=== PATIENT | male | born 1965 | race Caucasian/White ===

== ENCOUNTER 2018-03-30 17:05 | Inpatient (IN) | payer MEDICAID, OTHER ==
[2018-03-30 19:00] LABS: ADD MAN DIFF? NO
[2018-03-30 19:02] LABS: WHITE BLOOD COUNT 9.1 10^3/ul (4.8-10.8)
[2018-03-30 19:02] LABS: BASOPHIL # 0.1 10^3/ul (0.0-0.1); BASOPHILS % 0.5 % (0.0-2.0); EOSINOPHILS # 0.3 10^3/ul (0.0-0.5); EOSINOPHILS % 2.7 % (0.0-7.0); HEMATOCRIT 31.4 % (42.0-52.0); HEMOGLOBIN 10.4 g/dl (14.0-18.0); LYMPHOCYTES % 11.4 % (15.0-51.0); MEAN CORPUSCULAR HEMOGLOBIN 31.3 pg (29.0-33.0); MEAN CORPUSCULAR HGB CONC 33.1 g/dl (32.0-37.0); MEAN CORPUSCULAR VOLUME 94.6 fl (82.0-101.0); MEAN PLATELET VOLUME 12.6 fl (7.4-10.4); MONOCYTE # 0.6 10^3/ul (0.3-0.9); NEUTROPHIL # 7.1 10^3/ul (1.6-7.5); PLATELET COUNT 217 10^3/UL (140-415); RED BLOOD COUNT 3.32 10^6/ul (4.70-6.10); RED CELL DISTRIBUTION WIDTH 13.2 % (11.5-14.5)
[2018-03-30 19:20] LABS: ALANINE AMINOTRANSFERASE 21 IU/L (13-69); ALBUMIN 3.5 g/dl (3.3-4.9); ALKALINE PHOSPHATASE 158 IU/L (42-121); ANION GAP 13 (5-13); ASPARTATE AMINO TRANSFERASE 17 IU/L (15-46); BILIRUBIN,INDIRECT 0.2 mg/dl (0-1.1); BILIRUBIN,TOTAL 0.2 mg/dl (0.2-1.3); BLOOD UREA NITROGEN 72 mg/dl (7-20); CALCIUM 8.1 mg/dl (8.4-10.2); CARBON DIOXIDE 18 mmol/L (21-31); CHLORIDE 109 mmol/L (97-110); CREATININE 7.72 mg/dl (0.61-1.24); Estimated GFR 7 mL/min (>60); GLUCOSE 123 mg/dl (70-220); POTASSIUM 5.2 mmol/L (3.5-5.1); SODIUM 140 mmol/L (135-144)
[2018-03-30 19:21] LABS: PROTIME 14.4 Sec (11.9-14.9); PT RATIO 1.1
[2018-03-30 19:22] LABS: PARTIAL THROMBOPLASTIN TIME 36.5 Sec (23.0-35.0)
[2018-03-30 19:31] LABS: TROPONIN-I 0.068 ng/ml (0.000-0.120)
[2018-03-30 19:57] LABS: B-TYPE NATRIURETIC PEPTIDE 58500 PG/ML (0-125)
[2018-03-30 21:27] LABS: ADD UMIC YES; UR ASCORBIC ACID NEGATIVE (NEGATIVE); UR BACTERIA FEW /HPF (NONE SEEN); UR BILIRUBIN (Dip) NEGATIVE (NEGATIVE); UR BLOOD (Dip) NEGATIVE (NEGATIVE); UR CLARITY CLEAR (CLEAR); UR COLOR STRAW (YELLOW); UR GLUCOSE (Dip) 2+ mg/dL (NEGATIVE); UR KETONES (Dip) NEGATIVE (NEGATIVE); UR LEUKOCYTE ESTERASE (Dip) NEGATIVE Leu/ul (NEGATIVE); UR NITRITE (Dip) NEGATIVE (NEGATIVE); UR RBC 5 /HPF (0-5); UR SPECIFIC GRAVITY (Dip) 1.013 (1.003-1.030); UR TOTAL PROTEIN (Dip) 2+ mg/dl (NEGATIVE); UR UROBILINOGEN (Dip) NEGATIVE (NEGATIVE); UR WBC 9 /HPF (0-5)
[2018-03-30] MEDS: FUROSEMIDE 40 MG INJ IV (22:22)
[2018-03-30 22:52] LABS: AADO2 Arterial 147.2 mmHg (7.0-24.0); Arterial Base Excess -8.5 mmol/L (-3.0-3); Arterial Blood Gas Oxygen Sat 84.1 mmHG (95.0-98.0); Arterial COHb 1.5 % (0.0-3.0); Arterial Fraction of Oxyhgb 82.7 % (93.0-99.0); Arterial HCO3 16.5 mmol/L (22.0-26.0); Arterial MetHb 0.2 % (0.0-1.5); Arterial Total Hemglobin 11.6 g/dl (12.0-18.0); Arterial pCO2 32.4 mmhg (35-45); MODE NASAL CANNULA; Site Right Brachial
[2018-03-30] MEDS ORDERED: ONDANSETRON 4 MG INJ IV (23:30)
[2018-03-30] MEDS ORDERED: ALBUTEROL/IPRATROPIUM (NEB) 3 ML AMP NEB (23:30)
[2018-03-30] MEDS ORDERED: ACETAMINOPHEN 325 MG TAB PO (23:30)
[2018-03-30] MEDS ORDERED: NITROGLYCERIN (SL) 0.4 MG TAB SL (23:30)
[2018-03-30] MEDS ORDERED: GLUCOSE GEL 15 GRAM TUBE BUCCAL (23:45)
[2018-03-30] MEDS ORDERED: GLUCOSE GEL 15 GRAM TUBE PO ×2 (23:45)
[2018-03-30] MEDS ORDERED: GLUCAGON 1 MG INJ IM (23:45)
[2018-03-30] MEDS ORDERED: DEXTROSE 50% 50 ML SYRINGE IV ×2 (23:45)
[2018-03-31] MEDS: LABETALOL HCL 20MG INJ IV ×4 (01:14→15:42)
[2018-03-31] MEDS: INSULIN ASPART [NOVOLOG] 3 ML PEN SC ×6 (01:15→21:23)
[2018-03-31] MEDS: ACCU-CHEK XX (01:18)
[2018-03-31 02:40] LABS: ADD MAN DIFF? NO
[2018-03-31 02:42] LABS: ABNORMAL IP MESSAGE 1; BASOPHILS % 0.3 % (0.0-2.0); EOSINOPHILS # 0.1 10^3/ul (0.0-0.5); EOSINOPHILS % 0.7 % (0.0-7.0); HEMATOCRIT 32.3 % (42.0-52.0); HEMOGLOBIN 10.5 g/dl (14.0-18.0); LYMPHOCYTES # 0.5 10^3/ul (0.8-2.9); LYMPHOCYTES % 4.1 % (15.0-51.0); MEAN CORPUSCULAR HEMOGLOBIN 30.9 pg (29.0-33.0); MEAN CORPUSCULAR HGB CONC 32.5 g/dl (32.0-37.0); MEAN PLATELET VOLUME 12.3 fl (7.4-10.4); MONOCYTE # 0.6 10^3/ul (0.3-0.9); MONOCYTES % 4.4 % (0.0-11.0); NEUTROPHIL # 11.7 10^3/ul (1.6-7.5); PLATELET COUNT 236 10^3/UL (140-415); POSITIVE DIFF @See below; RED CELL DISTRIBUTION WIDTH 13.4 % (11.5-14.5)
[2018-03-31 03:10] LABS: HEMOGLOBIN A1C 6.2 % (0-5.9)
[2018-03-31 03:20] LABS: ALANINE AMINOTRANSFERASE 21 IU/L (13-69); ALBUMIN 3.4 g/dl (3.3-4.9); ALKALINE PHOSPHATASE 160 IU/L (42-121); ANION GAP 14 (5-13); ASPARTATE AMINO TRANSFERASE 15 IU/L (15-46); BILIRUBIN,INDIRECT 0.3 mg/dl (0-1.1); BILIRUBIN,TOTAL 0.3 mg/dl (0.2-1.3); BLOOD UREA NITROGEN 74 mg/dl (7-20); CARBON DIOXIDE 17 mmol/L (21-31); CHLORIDE 108 mmol/L (97-110); CREATININE 7.79 mg/dl (0.61-1.24); Estimated GFR 7 mL/min (>60); GLUCOSE 140 mg/dl (70-220); POTASSIUM 5.4 mmol/L (3.5-5.1); SODIUM 139 mmol/L (135-144); TOTAL PROTEIN 6.8 g/dl (6.1-8.1)
[2018-03-31] MEDS: CEFTRIAXONE 1 GM/50 ML (PMX) 50 ML IVPB (03:20)
[2018-03-31 06:01] LABS: POTASSIUM,URINE RANDOM 25.2 mmol/L (25-125)
[2018-03-31 06:01] LABS: SODIUM,URINE RANDOM 117 mmol/L (30-90)
[2018-03-31] MEDS: FAMOTIDINE 20 MG INJ IV (09:39)
[2018-03-31 12:27] LABS: HAAIG REFLEX REFLEX FILED
[2018-03-31] MEDS: BUMETANIDE 1 MG INJ IV (12:35)
[2018-03-31] MEDS: NA BICARBONATE 650 MG TAB PO ×2 (12:44→21:08)
[2018-03-31] MEDS: NA POLYST SULFON 15 GM/60 ML BTL PO ×2 (12:45→13:03)
[2018-03-31] MEDS: AMLODIPINE 5 MG TAB PO (15:42)
[2018-03-31] MEDS: BUMETANIDE 25 MG in DEXTROSE 5% 150 ML IV (18:06)
[2018-03-31 19:25] LABS: TROPONIN-I 0.139 ng/ml (0.000-0.120)
[2018-03-31] MEDS: ATORVASTATIN 80 MG TAB PO (21:08)
[2018-03-31 22:19] LABS: HEPATITIS B SURFACE ANTIGEN NEGATIVE (NEGATIVE)
[2018-03-31 22:36] LABS: HEPATITIS C VIRAL ANTIBODY NEGATIVE (NEGATIVE)
[2018-03-31 23:37] LABS: HEPATITIS B CORE ANTIBODY NEGATIVE (NEGATIVE)
[2018-04-01] MEDS: INSULIN ASPART [NOVOLOG] 3 ML PEN SC ×6 (01:23→21:15)
[2018-04-01 01:29] LABS: TROPONIN-I 0.119 ng/ml (0.000-0.120)
[2018-04-01] MEDS: ACCU-CHEK XX (01:52)
[2018-04-01 06:20] LABS: ANION GAP 12 (5-13); BLOOD UREA NITROGEN 78 mg/dl (7-20); CALCIUM 7.9 mg/dl (8.4-10.2); CARBON DIOXIDE 18 mmol/L (21-31); CHLORIDE 108 mmol/L (97-110); CHOL/HDL RATIO 3.3 RATIO; CREATININE 8.13 mg/dl (0.61-1.24); Estimated GFR 7 mL/min (>60); GLUCOSE 115 mg/dl (70-220); HDL CHOLESTEROL 32 mg/dl (28-71); LDL CHOLESTEROL,CALCULATED 58 mg/dl; MAGNESIUM 1.7 mg/dl (1.7-2.5); SODIUM 138 mmol/L (135-144); TRIGLYCERIDES 81 mg/dl (0-149)
[2018-04-01 06:20] LABS: CHOLESTEROL 106 mg/dl (100-200); PHOSPHORUS 7.6 mg/dl (2.5-4.9)
[2018-04-01 06:57] LABS: CREATININE,URINE RANDOM 26.84 mg/dl (20-370); PROTEIN/CREAT RATIO 5.96 RATIO
[2018-04-01 07:40] LABS: HIV 1&2 ANTIBODY NEGATIVE (NEGATIVE)
[2018-04-01] MEDS: FLU VACCINE 30 MCG/0.25 ML PF SYG (QS 2018 6-35 MOS) IM* (09:10)
[2018-04-01] MEDS: REGADENOSON 0.4 MG/5 ML SYG (09:37)
[2018-04-01] MEDS: NA BICARBONATE 650 MG TAB PO ×2 (10:49→20:48)
[2018-04-01] MEDS: FAMOTIDINE 20 MG TAB PO (10:50)
[2018-04-01] MEDS: AMLODIPINE 5 MG TAB PO (10:51)
[2018-04-01] MEDS: ASPIRIN 81 MG TAB PO (10:53)
[2018-04-01 15:01] LABS: ANA SCREEN NEGATIVE (NEGATIVE)
[2018-04-01 16:58] LABS: RAPID PLASMA REAGIN NONREACTIVE (NR)
[2018-04-01] MEDS: BUMETANIDE 25 MG in DEXTROSE 5% 150 ML IV (17:21)
[2018-04-01] MEDS: ATORVASTATIN 80 MG TAB PO (20:49)
[2018-04-02] MEDS: INSULIN ASPART [NOVOLOG] 3 ML PEN SC ×6 (01:07→20:56)
[2018-04-02] MEDS: ACCU-CHEK XX (01:09)
[2018-04-02 05:25] LABS: ADD MAN DIFF? NO
[2018-04-02 05:28] LABS: BASOPHIL # 0.1 10^3/ul (0.0-0.1); BASOPHILS % 0.8 % (0.0-2.0); EOSINOPHILS # 0.2 10^3/ul (0.0-0.5); HEMATOCRIT 29.1 % (42.0-52.0); HEMOGLOBIN 9.7 g/dl (14.0-18.0); LYMPHOCYTES # 0.9 10^3/ul (0.8-2.9); LYMPHOCYTES % 11.4 % (15.0-51.0); MEAN CORPUSCULAR HEMOGLOBIN 31.4 pg (29.0-33.0); MEAN CORPUSCULAR HGB CONC 33.3 g/dl (32.0-37.0); MEAN CORPUSCULAR VOLUME 94.2 fl (82.0-101.0); MEAN PLATELET VOLUME 12.8 fl (7.4-10.4); MONOCYTE # 0.6 10^3/ul (0.3-0.9); MONOCYTES % 8.5 % (0.0-11.0); NEUTROPHIL # 5.7 10^3/ul (1.6-7.5); NEUTROPHILS % 75.9 % (39.0-77.0); PLATELET COUNT 219 10^3/UL (140-415); RED BLOOD COUNT 3.09 10^6/ul (4.70-6.10); RED CELL DISTRIBUTION WIDTH 13.2 % (11.5-14.5)
[2018-04-02 05:28] LABS: WHITE BLOOD COUNT 7.6 10^3/ul (4.8-10.8)
[2018-04-02 06:02] LABS: ANION GAP 13 (5-13); BLOOD UREA NITROGEN 86 mg/dl (7-20); CARBON DIOXIDE 20 mmol/L (21-31); CHLORIDE 105 mmol/L (97-110); CREATININE 8.47 mg/dl (0.61-1.24); Estimated GFR 7 mL/min (>60); GLUCOSE 98 mg/dl (70-220); POTASSIUM 4.9 mmol/L (3.5-5.1); SODIUM 138 mmol/L (135-144)
[2018-04-02] MEDS ORDERED: HEPARIN 1000 UNITS/ML 10 ML INJ (07:16)
[2018-04-02] MEDS ORDERED: HEPARIN 1000 UNITS/ML 10 ML INJ CATHETER (07:30)
[2018-04-02] MEDS: HEPARIN 1000 UNITS/ML 10 ML INJ CATHETER ×2 (07:36→14:49)
[2018-04-02] MEDS: NA BICARBONATE 650 MG TAB PO (08:17)
[2018-04-02] MEDS: CALCIUM ACETATE 667 MG CAP PO ×3 (08:18→17:39)
[2018-04-02] MEDS: AMLODIPINE 5 MG TAB PO (08:18)
[2018-04-02] MEDS: FAMOTIDINE 20 MG TAB PO (08:18)
[2018-04-02] MEDS: ASPIRIN 81 MG TAB PO (08:18)
[2018-04-02] MEDS ORDERED: SODIUM CHLORIDE 0.9% 1L BAG IV (10:00)
[2018-04-02] MEDS: BUMETANIDE 1 MG TAB PO ×2 (11:59→20:55)
[2018-04-02] MEDS: MANNITOL 25% 50 ML IV (13:28)
[2018-04-02 13:46] LABS: ANCA SCREEN NEGATIVE (NEGATIVE)
[2018-04-02 16:46] LABS: MYELOPEROXIDASE ANTIBODY <1.0 AI; PROTEINASE-3 ANTIBODY <1.0 AI
[2018-04-02] MEDS: ATORVASTATIN 80 MG TAB PO (20:55)
[2018-04-03] MEDS: ACCU-CHEK XX (02:00)
[2018-04-03 05:37] LABS: ANION GAP 9 (5-13); BLOOD UREA NITROGEN 63 mg/dl (7-20); CARBON DIOXIDE 26 mmol/L (21-31); CHLORIDE 103 mmol/L (97-110); CREATININE 6.81 mg/dl (0.61-1.24); Estimated GFR 9 mL/min (>60); GLUCOSE 106 mg/dl (70-220); POTASSIUM 4.4 mmol/L (3.5-5.1); SODIUM 138 mmol/L (135-144)
[2018-04-03] MEDS: BUMETANIDE 1 MG TAB PO ×2 (05:46→18:03)
[2018-04-03] MEDS ORDERED: HEPARIN 1000 UNITS/ML 10 ML INJ CATHETER (07:00)
[2018-04-03] MEDS ORDERED: SODIUM CHLORIDE 0.9% 1L BAG IV (07:00)
[2018-04-03] MEDS ORDERED: ALBUMIN HUMAN 25% 100 ML IV (07:00)
[2018-04-03] MEDS: INSULIN ASPART [NOVOLOG] 3 ML PEN SC ×4 (07:35→20:56)
[2018-04-03] MEDS: AMLODIPINE 5 MG TAB PO (08:13)
[2018-04-03] MEDS: FAMOTIDINE 20 MG TAB PO (08:13)
[2018-04-03] MEDS: CALCIUM ACETATE 667 MG CAP PO ×3 (08:13→18:03)
[2018-04-03] MEDS: ASPIRIN 81 MG TAB PO (08:14)
[2018-04-03] MEDS: HEPARIN 1000 UNITS/ML 10 ML INJ CATHETER (18:10)
[2018-04-03] MEDS: ATORVASTATIN 80 MG TAB PO (20:51)
[2018-04-03] MEDS: INSULIN GLARGINE [LANTus] (100 UNITS/ML) SYG SC (20:54)
[2018-04-04] MEDS: ACCU-CHEK XX (02:41)
[2018-04-04] MEDS: BUMETANIDE 1 MG TAB PO ×2 (06:34→18:27)
[2018-04-04 07:51] LABS: ANION GAP 8 (5-13); BLOOD UREA NITROGEN 44 mg/dl (7-20); CALCIUM 8.2 mg/dl (8.4-10.2); CARBON DIOXIDE 29 mmol/L (21-31); CHLORIDE 105 mmol/L (97-110); CREATININE 5.16 mg/dl (0.61-1.24); Estimated GFR 12 mL/min (>60); GLUCOSE 63 mg/dl (70-220); POTASSIUM 4.2 mmol/L (3.5-5.1); SODIUM 142 mmol/L (135-144)
[2018-04-04] MEDS: INSULIN ASPART [NOVOLOG] 3 ML PEN SC ×4 (07:55→21:00)
[2018-04-04] MEDS: ASPIRIN 81 MG TAB PO (08:08)
[2018-04-04] MEDS: CALCIUM ACETATE 667 MG CAP PO ×3 (08:08→18:27)
[2018-04-04] MEDS: FAMOTIDINE 20 MG TAB PO (08:09)
[2018-04-04] MEDS: AMLODIPINE 5 MG TAB PO (08:09)
[2018-04-04] MEDS: ATORVASTATIN 80 MG TAB PO (21:44)
[2018-04-04] MEDS: INSULIN GLARGINE [LANTus] (100 UNITS/ML) SYG SC (21:47)
[2018-04-05] MEDS: ACCU-CHEK XX (02:00)
[2018-04-05 07:37] LABS: ANION GAP 8 (5-13); BLOOD UREA NITROGEN 56 mg/dl (7-20); CALCIUM 8.1 mg/dl (8.4-10.2); CARBON DIOXIDE 28 mmol/L (21-31); CHLORIDE 101 mmol/L (97-110); CREATININE 5.94 mg/dl (0.61-1.24); Estimated GFR 10 mL/min (>60); GLUCOSE 80 mg/dl (70-220); POTASSIUM 4.4 mmol/L (3.5-5.1); SODIUM 137 mmol/L (135-144)
[2018-04-05] MEDS: INSULIN ASPART [NOVOLOG] 3 ML PEN SC ×4 (08:00→21:00)
[2018-04-05] MEDS: AMLODIPINE 5 MG TAB PO (09:00)
[2018-04-05] MEDS: CALCIUM ACETATE 667 MG CAP PO ×3 (09:05→17:43)
[2018-04-05] MEDS: BUMETANIDE 1 MG TAB PO (09:06)
[2018-04-05] MEDS: ASPIRIN 81 MG TAB PO (09:06)
[2018-04-05] MEDS: FAMOTIDINE 20 MG TAB PO (09:06)
[2018-04-05] MEDS: HEPARIN 1000 UNITS/ML 10 ML INJ CATHETER (13:21)
[2018-04-05] MEDS: ATORVASTATIN 80 MG TAB PO (20:09)
[2018-04-05] MEDS: INSULIN GLARGINE [LANTus] (100 UNITS/ML) SYG SC (20:13)
[2018-04-06] MEDS: INSULIN ASPART [NOVOLOG] 3 ML PEN SC ×4 (08:00→20:58)
[2018-04-06] MEDS: CALCIUM ACETATE 667 MG CAP PO ×3 (08:44→18:12)
[2018-04-06] MEDS: AMLODIPINE 5 MG TAB PO (08:47)
[2018-04-06] MEDS: BUMETANIDE 1 MG TAB PO (08:47)
[2018-04-06] MEDS: FAMOTIDINE 20 MG TAB PO (08:48)
[2018-04-06] MEDS: ASPIRIN 81 MG TAB PO (08:48)
[2018-04-06 10:55] LABS: COLLECTION PERIOD 24 hrs; CREATININE CLEARANCE 3.8 mls/min (84.0-162.0); CREATININE,URINE RANDOM 43.69 mg/dl (20-370); SCRET 5.94 mg/dl (0.61-1.24); VOLUME 750 ml/24hrs
[2018-04-06 20:18] LABS: HEPATITIS B SURFACE ANTIBODY NEGATIVE (NEGATIVE)
[2018-04-06] MEDS: ATORVASTATIN 80 MG TAB PO (20:59)
[2018-04-06] MEDS: INSULIN GLARGINE [LANTus] (100 UNITS/ML) SYG SC (21:03)
[2018-04-07 06:21] LABS: ANION GAP 7 (5-13); BLOOD UREA NITROGEN 58 mg/dl (7-20); CALCIUM 8.2 mg/dl (8.4-10.2); CARBON DIOXIDE 28 mmol/L (21-31); CHLORIDE 99 mmol/L (97-110); CREATININE 5.37 mg/dl (0.61-1.24); Estimated GFR 11 mL/min (>60); GLUCOSE 64 mg/dl (70-220); POTASSIUM 4.8 mmol/L (3.5-5.1); SODIUM 134 mmol/L (135-144)
[2018-04-07] MEDS: INSULIN ASPART [NOVOLOG] 3 ML PEN SC ×4 (08:00→21:00)
[2018-04-07] MEDS: ASPIRIN 81 MG TAB PO (09:05)
[2018-04-07] MEDS: FAMOTIDINE 20 MG TAB PO (09:05)
[2018-04-07] MEDS: BUMETANIDE 1 MG TAB PO (09:05)
[2018-04-07] MEDS: CALCIUM ACETATE 667 MG CAP PO ×3 (09:05→17:39)
[2018-04-07] MEDS: AMLODIPINE 5 MG TAB PO (09:06)
[2018-04-07] MEDS: INSULIN GLARGINE [LANTus] (100 UNITS/ML) SYG SC (21:43)
[2018-04-07] MEDS: ATORVASTATIN 80 MG TAB PO (21:45)
[2018-04-08] MEDS: INSULIN ASPART [NOVOLOG] 3 ML PEN SC ×4 (08:00→21:00)
[2018-04-08] MEDS: CALCIUM ACETATE 667 MG CAP PO ×3 (09:30→18:29)
[2018-04-08] MEDS: AMLODIPINE 5 MG TAB PO (09:31)
[2018-04-08] MEDS: FAMOTIDINE 20 MG TAB PO (09:31)
[2018-04-08] MEDS: BUMETANIDE 1 MG TAB PO (09:31)
[2018-04-08] MEDS: ASPIRIN 81 MG TAB PO (09:31)
[2018-04-08 12:09] LABS: ANION GAP 10 (5-13); BLOOD UREA NITROGEN 74 mg/dl (7-20); CALCIUM 8.4 mg/dl (8.4-10.2); CARBON DIOXIDE 25 mmol/L (21-31); CHLORIDE 99 mmol/L (97-110); CREATININE 6.58 mg/dl (0.61-1.24); Estimated GFR 9 mL/min (>60); GLUCOSE 114 mg/dl (70-220); SODIUM 134 mmol/L (135-144)
[2018-04-08 12:11] LABS: POTASSIUM 5.4 mmol/L (3.5-5.1)
[2018-04-08 18:13] LABS: COLLECTION PERIOD 24
[2018-04-08 18:47] LABS: COLLECTION PERIOD 24 hrs; CREATININE CLEARANCE 9.6 mls/min (84.0-162.0); CREATININE,URINE RANDOM 53.79 mg/dl (20-370); SCRET 6.58 mg/dl (0.61-1.24); VOLUME 1700 ml/24hrs
[2018-04-08 18:48] LABS: URINE UREA NITROGEN 370 mg/dl; VOLUME 1700 mls
[2018-04-08] MEDS: ATORVASTATIN 80 MG TAB PO (21:19)
[2018-04-08] MEDS: NA POLYST SULFON 15 GM/60 ML BTL PO (21:23)
[2018-04-08] MEDS: INSULIN GLARGINE [LANTus] (100 UNITS/ML) SYG SC (21:37)
[2018-04-09] MEDS: INSULIN ASPART [NOVOLOG] 3 ML PEN SC ×4 (08:00→20:29)
[2018-04-09] MEDS ORDERED: MIDAZOLAM 1 MG/ML 2 ML INJ ×2 (08:14→08:18)
[2018-04-09] MEDS ORDERED: FENTAnyl 50 MCG/ML VIAL ×2 (08:15→08:18)
[2018-04-09] MEDS ORDERED: SOD CHLORIDE 0.9% 500 ML (08:18)
[2018-04-09] MEDS ORDERED: LIDOCAINE 2% (MDV) 20 ML INJ (08:18)
[2018-04-09] MEDS ORDERED: HEPARIN 1000 UNITS/ML 10 ML INJ (08:18)
[2018-04-09] MEDS ORDERED: HEPARIN 1000 UNITS/NS (A-LINE) 1,000 ML (08:32)
[2018-04-09] MEDS: ASPIRIN 81 MG TAB PO (09:14)
[2018-04-09] MEDS: CALCIUM ACETATE 667 MG CAP PO ×3 (09:14→17:39)
[2018-04-09] MEDS: FAMOTIDINE 20 MG TAB PO (09:15)
[2018-04-09] MEDS: BUMETANIDE 1 MG TAB PO (09:15)
[2018-04-09] MEDS: HEPARIN 1000 UNITS/ML 10 ML INJ CATHETER (15:29)
[2018-04-09] MEDS: ATORVASTATIN 80 MG TAB PO (20:22)
[2018-04-09] MEDS: INSULIN GLARGINE [LANTus] (100 UNITS/ML) SYG SC (20:27)
[2018-04-10 06:40] LABS: ANION GAP 8 (5-13); BLOOD UREA NITROGEN 53 mg/dl (7-20); CARBON DIOXIDE 28 mmol/L (21-31); CHLORIDE 103 mmol/L (97-110); CREATININE 4.97 mg/dl (0.61-1.24); Estimated GFR 12 mL/min (>60); GLUCOSE 93 mg/dl (70-220); POTASSIUM 4.6 mmol/L (3.5-5.1); SODIUM 139 mmol/L (135-144)
[2018-04-10] MEDS: INSULIN ASPART [NOVOLOG] 3 ML PEN SC ×4 (08:00→21:00)
[2018-04-10] MEDS: FAMOTIDINE 20 MG TAB PO (08:33)
[2018-04-10] MEDS: ASPIRIN 81 MG TAB PO (08:33)
[2018-04-10] MEDS: CALCIUM ACETATE 667 MG CAP PO ×3 (08:33→17:49)
[2018-04-10] MEDS: BUMETANIDE 1 MG TAB PO (08:33)
[2018-04-10] MEDS: ATORVASTATIN 80 MG TAB PO (21:23)
[2018-04-10] MEDS: INSULIN GLARGINE [LANTus] (100 UNITS/ML) SYG SC (21:29)
[2018-04-11] MEDS: INSULIN ASPART [NOVOLOG] 3 ML PEN SC ×4 (08:00→20:42)
[2018-04-11] MEDS: CALCIUM ACETATE 667 MG CAP PO ×3 (08:31→17:32)
[2018-04-11] MEDS: FAMOTIDINE 20 MG TAB PO (08:31)
[2018-04-11] MEDS: BUMETANIDE 1 MG TAB PO (08:32)
[2018-04-11] MEDS: ASPIRIN 81 MG TAB PO (08:33)
[2018-04-11] MEDS: ATORVASTATIN 80 MG TAB PO (20:36)
[2018-04-11] MEDS: INSULIN GLARGINE [LANTus] (100 UNITS/ML) SYG SC (20:39)
[2018-04-12] MEDS: INSULIN ASPART [NOVOLOG] 3 ML PEN SC ×4 (08:00→20:26)
[2018-04-12] MEDS: FAMOTIDINE 20 MG TAB PO (09:09)
[2018-04-12] MEDS: BUMETANIDE 1 MG TAB PO (09:09)
[2018-04-12] MEDS: ASPIRIN 81 MG TAB PO (09:09)
[2018-04-12] MEDS: CALCIUM ACETATE 667 MG CAP PO ×3 (09:09→17:48)
[2018-04-12] MEDS: HEPARIN 1000 UNITS/ML 10 ML INJ CATHETER (12:09)
[2018-04-12] MEDS: LOSARTAN 25 MG TAB PO (17:48)
[2018-04-12] MEDS: ATORVASTATIN 80 MG TAB PO (20:21)
[2018-04-12] MEDS: INSULIN GLARGINE [LANTus] (100 UNITS/ML) SYG SC (20:25)
[2018-04-13] MEDS: INSULIN ASPART [NOVOLOG] 3 ML PEN SC ×2 (08:00→12:00)
[2018-04-13] MEDS: ASPIRIN 81 MG TAB PO (08:58)
[2018-04-13] MEDS: FAMOTIDINE 20 MG TAB PO (08:58)
[2018-04-13] MEDS: CALCIUM ACETATE 667 MG CAP PO ×3 (08:58→17:55)
[2018-04-13] MEDS: LOSARTAN 25 MG TAB PO (08:58)
[2018-04-13] MEDS: BUMETANIDE 1 MG TAB PO (08:58)
[2018-04-13 12:12] LABS: ANION GAP 7 (5-13); BLOOD UREA NITROGEN 59 mg/dl (7-20); CALCIUM 8.7 mg/dl (8.4-10.2); CARBON DIOXIDE 29 mmol/L (21-31); CHLORIDE 100 mmol/L (97-110); CREATININE 5.72 mg/dl (0.61-1.24); Estimated GFR 10 mL/min (>60); GLUCOSE 113 mg/dl (70-220); POTASSIUM 4.9 mmol/L (3.5-5.1); SODIUM 136 mmol/L (135-144)
== END 2018-04-13 18:05 | disposition home or self-care (01) | DRG 673 ==
LOC: ICU 21:32 → TEL 04-03 14:38 → 2NE 04-04 16:56 → E/R 17:05
PROC: 0JH60XZ Insertion of Tunneled Vascular Access Device into Chest Subcutaneous Tissue and Fascia, Open Approach (ICD-10-PCS; principal; 2018-04-09 08:04)
PROC: 5A09357 Assistance with Respiratory Ventilation, Less than 24 Consecutive Hours, Continuous Positive Airway Pressure (ICD-10-PCS; 2018-04-09 08:04)
PROC: 06HM33Z Insertion of Infusion Device into Right Femoral Vein, Percutaneous Approach (ICD-10-PCS; 2018-04-09 08:04)
PROC: 5A1D70Z Performance of Urinary Filtration, Intermittent, Less than 6 Hours Per Day (ICD-10-PCS; 2018-04-09 08:04)
PROC: 05HM33Z Insertion of Infusion Device into Right Internal Jugular Vein, Percutaneous Approach (ICD-10-PCS; 2018-04-09 08:04)
DX: N17.9 Acute kidney failure, unspecified (principal); J96.01 Acute respiratory failure with hypoxia; I50.23 Acute on chronic systolic (congestive) heart failure; I13.2 Hypertensive heart and chronic kidney disease with heart failure and with stage 5 chronic kidney disease, or end stage renal disease; I16.1 Hypertensive emergency; E87.2 Acidosis; N39.0 Urinary tract infection, site not specified; E78.5 Hyperlipidemia, unspecified; E87.5 Hyperkalemia; F17.210 Nicotine dependence, cigarettes, uncomplicated; E11.22 Type 2 diabetes mellitus with diabetic chronic kidney disease; E11.21 Type 2 diabetes mellitus with diabetic nephropathy; Z72.0 Tobacco use; R07.9 Chest pain, unspecified; N18.6 End stage renal disease; Z99.2 Dependence on renal dialysis
CPT/HCPCS: 36415; 36600; 71045; 76700; 78452; 80048; 80053; 80061; 81001; 81003; 82436; 82540; 82570; 82575; 82803; 82962; 83036; 83735; 83880; 84100; 84133; 84300; 84484; 85025; 85610; 85730; 86021; 86038; 86592; 86703; 86704; 86706; 86709; 86803; 87081; 87086; 87340; 90685; 90935; 93005; 93017; 93306; 93970; 94660; 97116; 97162; 97530; 99291-25

== ENCOUNTER 2018-08-20 15:59 | Inpatient (IN) | payer MEDICAID ==
[2018-08-20 18:42] LABS: ADD MAN DIFF? NO
[2018-08-20 18:53] LABS: WHITE BLOOD COUNT 4.8 10^3/ul (4.8-10.8)
[2018-08-20 18:53] LABS: BASOPHIL # 0.1 10^3/ul (0.0-0.1); EOSINOPHILS # 0.1 10^3/ul (0.0-0.5); EOSINOPHILS % 2.1 % (0.0-7.0); HEMATOCRIT 26.3 % (42.0-52.0); HEMOGLOBIN 8.4 g/dl (14.0-18.0); LYMPHOCYTES # 0.7 10^3/ul (0.8-2.9); LYMPHOCYTES % 13.6 % (15.0-51.0); MEAN CORPUSCULAR HGB CONC 31.9 g/dl (32.0-37.0); MEAN PLATELET VOLUME 12.4 fl (7.4-10.4); MONOCYTE # 0.4 10^3/ul (0.3-0.9); MONOCYTES % 9.2 % (0.0-11.0); NEUTROPHIL # 3.5 10^3/ul (1.6-7.5); NEUTROPHILS % 73.9 % (39.0-77.0); PLATELET COUNT 160 10^3/UL (140-415); RED BLOOD COUNT 2.71 10^6/ul (4.70-6.10); RED CELL DISTRIBUTION WIDTH 13.3 % (11.5-14.5)
[2018-08-20 19:13] LABS: PROTIME 14.3 Sec (11.9-14.9); PT RATIO 1.1
[2018-08-20 19:14] LABS: PARTIAL THROMBOPLASTIN TIME 32.6 Sec (23.0-35.0)
[2018-08-20 19:17] LABS: ALANINE AMINOTRANSFERASE 16 IU/L (13-69); ALBUMIN 3.4 g/dl (3.3-4.9); ALBUMIN/GLOBULIN RATIO 1.03; ALKALINE PHOSPHATASE 127 IU/L (42-121); ANION GAP 14 (5-13); ASPARTATE AMINO TRANSFERASE 13 IU/L (15-46); BLOOD UREA NITROGEN 101 mg/dl (7-20); CALCIUM 8.2 mg/dl (8.4-10.2); CARBON DIOXIDE 21 mmol/L (21-31); CHLORIDE 103 mmol/L (97-110); CREATININE 11.34 mg/dl (0.61-1.24); Estimated GFR 5 mL/min (>60); GLUCOSE 126 mg/dl (70-220); POTASSIUM 5.1 mmol/L (3.5-5.1); SODIUM 138 mmol/L (135-144); TOTAL PROTEIN 6.7 g/dl (6.1-8.1)
[2018-08-20] MEDS: FUROSEMIDE 40 MG INJ IV (19:27)
[2018-08-20] MEDS ORDERED: ACETAMINOPHEN 325 MG TAB PO (21:00)
[2018-08-20] MEDS ORDERED: ONDANSETRON 4 MG INJ IV (21:00)
[2018-08-20] MEDS ORDERED: NACL 0.9% 3 ML SYG IV (23:00)
[2018-08-20] MEDS ORDERED: ALBUTEROL/IPRATROPIUM (NEB) 3 ML AMP HHN (23:00)
[2018-08-20] MEDS ORDERED: GLUCOSE GEL 15 GRAM TUBE PO ×2 (23:30)
[2018-08-20] MEDS ORDERED: DEXTROSE 50% 50 ML SYRINGE IV ×2 (23:30)
[2018-08-20] MEDS ORDERED: GLUCOSE GEL 15 GRAM TUBE BUCCAL (23:30)
[2018-08-20] MEDS ORDERED: GLUCAGON 1 MG INJ IM (23:30)
[2018-08-21] MEDS: ACCU-CHEK XX (01:29)
[2018-08-21 06:53] LABS: ADD MAN DIFF? NO
[2018-08-21 06:56] LABS: ABNORMAL IP MESSAGE 1; BASOPHILS % 0.3 % (0.0-2.0); EOSINOPHILS # 0.1 10^3/ul (0.0-0.5); HEMATOCRIT 22.4 % (42.0-52.0); LYMPHOCYTES # 0.5 10^3/ul (0.8-2.9); LYMPHOCYTES % 14.5 % (15.0-51.0); MEAN CORPUSCULAR HGB CONC 31.3 g/dl (32.0-37.0); MEAN CORPUSCULAR VOLUME 96.1 fl (82.0-101.0); MEAN PLATELET VOLUME 12.7 fl (7.4-10.4); MONOCYTE # 0.3 10^3/ul (0.3-0.9); MONOCYTES % 9.3 % (0.0-11.0); NEUTROPHIL # 2.4 10^3/ul (1.6-7.5); NEUTROPHILS % 72.6 % (39.0-77.0); PLATELET COUNT 105 10^3/UL (140-415); POSITIVE DIFF @See below; RED BLOOD COUNT 2.33 10^6/ul (4.70-6.10); RED CELL DISTRIBUTION WIDTH 13.5 % (11.5-14.5)
[2018-08-21 06:56] LABS: WHITE BLOOD COUNT 3.3 10^3/ul (4.8-10.8)
[2018-08-21 07:16] LABS: IRON 28 ug/dl (35-150)
[2018-08-21 07:20] LABS: ALANINE AMINOTRANSFERASE 21 IU/L (13-69); ALBUMIN 2.7 g/dl (3.3-4.9); ALBUMIN/GLOBULIN RATIO 0.93; ALKALINE PHOSPHATASE 99 IU/L (42-121); ANION GAP 12 (5-13); ASPARTATE AMINO TRANSFERASE 10 IU/L (15-46); BLOOD UREA NITROGEN 102 mg/dl (7-20); CALCIUM 7.8 mg/dl (8.4-10.2); CARBON DIOXIDE 21 mmol/L (21-31); CHLORIDE 105 mmol/L (97-110); CREATININE 11.05 mg/dl (0.61-1.24); Estimated GFR 5 mL/min (>60); GLUCOSE 119 mg/dl (70-220); MAGNESIUM 2.1 mg/dl (1.7-2.5); POTASSIUM 5.2 mmol/L (3.5-5.1); SODIUM 138 mmol/L (135-144); TOTAL PROTEIN 5.6 g/dl (6.1-8.1)
[2018-08-21 07:25] LABS: HEMOGLOBIN A1C 6.3 % (0-5.9)
[2018-08-21 07:25] LABS: % IRON SATURATION 8 % SAT (22-52); TOTAL IRON BINDING CAPACITY 348 ug/dl (241-421)
[2018-08-21 07:53] LABS: FERRITIN 21.4 ng/ml (11.1-264.0)
[2018-08-21] MEDS: INSULIN GLARGINE [LANTus] (100 UNITS/ML) SYG SC (09:12)
[2018-08-21] MEDS: INSULIN ASPART [NOVOLOG] 3 ML PEN SC ×7 (09:13→20:11)
[2018-08-21] MEDS: ASPIRIN (EC) 81 MG TAB PO (09:16)
[2018-08-21] MEDS: BUMETANIDE 1 MG TAB PO (09:16)
[2018-08-21] MEDS: LOSARTAN 25 MG TAB PO (09:17)
[2018-08-21] MEDS: AMLODIPINE 10 MG TAB PO (09:17)
[2018-08-21 14:42] LABS: HEMATOCRIT 22.2 % (42.0-52.0)
[2018-08-21] MEDS: NICOTINE (14 MG/24 HR) PATCH TRANSDERM (16:54)
[2018-08-21 17:23] LABS: HAAIG REFLEX REFLEX FILED
[2018-08-21 18:03] LABS: HEPATITIS B SURFACE ANTIGEN NEGATIVE (NEGATIVE)
[2018-08-21 18:21] LABS: HEPATITIS B CORE ANTIBODY NEGATIVE (NEGATIVE); HEPATITIS C VIRAL ANTIBODY NEGATIVE (NEGATIVE)
[2018-08-21] MEDS: ATORVASTATIN 40 MG TAB PO (20:14)
[2018-08-22] MEDS: ACCU-CHEK XX (01:56)
[2018-08-22] MEDS: MANNITOL 25% 50 ML INJ IV* (03:18)
[2018-08-22 06:39] LABS: ADD MAN DIFF? NO
[2018-08-22 06:45] LABS: ABNORMAL IP MESSAGE 1; BASOPHILS % 0.2 % (0.0-2.0); EOSINOPHILS # 0.1 10^3/ul (0.0-0.5); EOSINOPHILS % 2.5 % (0.0-7.0); HEMATOCRIT 22.1 % (42.0-52.0); HEMOGLOBIN 7.2 g/dl (14.0-18.0); LYMPHOCYTES # 0.5 10^3/ul (0.8-2.9); LYMPHOCYTES % 12.7 % (15.0-51.0); MEAN CORPUSCULAR HEMOGLOBIN 30.6 pg (29.0-33.0); MEAN CORPUSCULAR HGB CONC 32.6 g/dl (32.0-37.0); MEAN PLATELET VOLUME 12.9 fl (7.4-10.4); MONOCYTE # 0.4 10^3/ul (0.3-0.9); MONOCYTES % 9.7 % (0.0-11.0); NEUTROPHILS % 74.7 % (39.0-77.0); PLATELET COUNT 122 10^3/UL (140-415); POSITIVE DIFF @See below; RED BLOOD COUNT 2.35 10^6/ul (4.70-6.10); RED CELL DISTRIBUTION WIDTH 13.1 % (11.5-14.5)
[2018-08-22 07:11] LABS: ANION GAP 10 (5-13); BLOOD UREA NITROGEN 81 mg/dl (7-20); CARBON DIOXIDE 25 mmol/L (21-31); CHLORIDE 102 mmol/L (97-110); CREATININE 8.55 mg/dl (0.61-1.24); Estimated GFR 7 mL/min (>60); GLUCOSE 147 mg/dl (70-220); POTASSIUM 3.9 mmol/L (3.5-5.1); SODIUM 137 mmol/L (135-144)
[2018-08-22] MEDS: INSULIN ASPART [NOVOLOG] 3 ML PEN SC ×7 (07:27→20:03)
[2018-08-22] MEDS: NICOTINE (14 MG/24 HR) PATCH TRANSDERM (08:36)
[2018-08-22] MEDS: BUMETANIDE 1 MG TAB PO (08:36)
[2018-08-22] MEDS: LOSARTAN 25 MG TAB PO (08:36)
[2018-08-22] MEDS: AMLODIPINE 10 MG TAB PO (08:36)
[2018-08-22] MEDS: ASPIRIN (EC) 81 MG TAB PO (08:37)
[2018-08-22] MEDS: INSULIN GLARGINE [LANTus] (100 UNITS/ML) SYG SC (09:30)
[2018-08-22 12:44] LABS: OCCULT BLOOD STOOL NEGATIVE (NEGATIVE)
[2018-08-22 13:00] LABS: IMMEDIATE SPIN CROSSMATCH 1 1
[2018-08-22] MEDS: SOD CHLORIDE 0.9% 250 ML IV* (13:10)
[2018-08-22] MEDS: MANNITOL 25% 50 ML IV (20:28)
[2018-08-22] MEDS: ONDANSETRON 4 MG INJ IV (21:23)
[2018-08-22] MEDS: HEPARIN 1000 UNITS/ML 10 ML INJ CATHETER (22:21)
[2018-08-22] MEDS: ATORVASTATIN 40 MG TAB PO (22:25)
[2018-08-23] MEDS: ACCU-CHEK XX (02:00)
[2018-08-23 06:50] LABS: ADD MAN DIFF? NO
[2018-08-23 07:00] LABS: ABNORMAL IP MESSAGE 1; BASOPHILS % 0.5 % (0.0-2.0); EOSINOPHILS # 0.1 10^3/ul (0.0-0.5); EOSINOPHILS % 2.7 % (0.0-7.0); HEMATOCRIT 23.5 % (42.0-52.0); HEMOGLOBIN 7.7 g/dl (14.0-18.0); LYMPHOCYTES # 0.6 10^3/ul (0.8-2.9); LYMPHOCYTES % 15.5 % (15.0-51.0); MEAN CORPUSCULAR HEMOGLOBIN 30.8 pg (29.0-33.0); MEAN CORPUSCULAR HGB CONC 32.8 g/dl (32.0-37.0); MEAN PLATELET VOLUME 13.4 fl (7.4-10.4); MONOCYTE # 0.5 10^3/ul (0.3-0.9); MONOCYTES % 13.3 % (0.0-11.0); NEUTROPHIL # 2.5 10^3/ul (1.6-7.5); NEUTROPHILS % 67.7 % (39.0-77.0); PLATELET COUNT 105 10^3/UL (140-415); POSITIVE DIFF @See below; RED CELL DISTRIBUTION WIDTH 13.5 % (11.5-14.5)
[2018-08-23 07:00] LABS: WHITE BLOOD COUNT 3.7 10^3/ul (4.8-10.8)
[2018-08-23] MEDS: INSULIN ASPART [NOVOLOG] 3 ML PEN SC ×7 (07:55→21:00)
[2018-08-23 08:06] LABS: PHOSPHORUS 7.4 mg/dl (2.5-4.9)
[2018-08-23 08:09] LABS: ANION GAP 9 (5-13); BLOOD UREA NITROGEN 75 mg/dl (7-20); CALCIUM 7.5 mg/dl (8.4-10.2); CARBON DIOXIDE 26 mmol/L (21-31); CHLORIDE 104 mmol/L (97-110); CREATININE 8.26 mg/dl (0.61-1.24); Estimated GFR 7 mL/min (>60); GLUCOSE 102 mg/dl (70-220); POTASSIUM 4.7 mmol/L (3.5-5.1); SODIUM 139 mmol/L (135-144)
[2018-08-23] MEDS: INSULIN GLARGINE [LANTus] (100 UNITS/ML) SYG SC (08:09)
[2018-08-23] MEDS: LOSARTAN 25 MG TAB PO (08:13)
[2018-08-23] MEDS: NICOTINE (14 MG/24 HR) PATCH TRANSDERM (08:13)
[2018-08-23] MEDS: BUMETANIDE 1 MG TAB PO (08:13)
[2018-08-23] MEDS: AMLODIPINE 10 MG TAB PO (08:15)
[2018-08-23] MEDS: ASPIRIN (EC) 81 MG TAB PO (08:33)
[2018-08-23] MEDS: MANNITOL 25% 50 ML IV (11:21)
[2018-08-23] MEDS: HEPARIN 1000 UNITS/ML 10 ML INJ CATHETER (13:34)
[2018-08-23] MEDS: EPOETIN ALFA-EPBX (ESRD) 4,000 UNIT/ML VIAL SC (17:59)
[2018-08-23] MEDS: CALCIUM ACETATE 667 MG CAP PO (18:00)
[2018-08-23] MEDS: ATORVASTATIN 40 MG TAB PO (21:16)
[2018-08-24] MEDS: ACCU-CHEK XX (02:00)
[2018-08-24 07:38] LABS: ADD MAN DIFF? NO
[2018-08-24 07:43] LABS: ABNORMAL IP MESSAGE 1; BASOPHILS % 0.5 % (0.0-2.0); EOSINOPHILS # 0.1 10^3/ul (0.0-0.5); HEMATOCRIT 24.7 % (42.0-52.0); HEMOGLOBIN 7.7 g/dl (14.0-18.0); LYMPHOCYTES # 0.6 10^3/ul (0.8-2.9); MEAN CORPUSCULAR HGB CONC 31.2 g/dl (32.0-37.0); MEAN CORPUSCULAR VOLUME 96.1 fl (82.0-101.0); MEAN PLATELET VOLUME 13.2 fl (7.4-10.4); MONOCYTE # 0.7 10^3/ul (0.3-0.9); MONOCYTES % 15.7 % (0.0-11.0); NEUTROPHIL # 2.8 10^3/ul (1.6-7.5); NEUTROPHILS % 65.6 % (39.0-77.0); PLATELET COUNT 95 10^3/UL (140-415); POSITIVE DIFF @See below; RED BLOOD COUNT 2.57 10^6/ul (4.70-6.10); RED CELL DISTRIBUTION WIDTH 13.5 % (11.5-14.5)
[2018-08-24 07:43] LABS: WHITE BLOOD COUNT 4.3 10^3/ul (4.8-10.8)
[2018-08-24] MEDS: INSULIN ASPART [NOVOLOG] 3 ML PEN SC ×7 (07:55→20:03)
[2018-08-24 08:05] LABS: ANION GAP 9 (5-13); BLOOD UREA NITROGEN 71 mg/dl (7-20); CALCIUM 7.5 mg/dl (8.4-10.2); CARBON DIOXIDE 27 mmol/L (21-31); CHLORIDE 103 mmol/L (97-110); Estimated GFR 8 mL/min (>60); GLUCOSE 96 mg/dl (70-220); POTASSIUM 4.6 mmol/L (3.5-5.1); SODIUM 139 mmol/L (135-144)
[2018-08-24] MEDS: NICOTINE (14 MG/24 HR) PATCH TRANSDERM (08:23)
[2018-08-24] MEDS: AMLODIPINE 10 MG TAB PO (08:24)
[2018-08-24] MEDS: CALCIUM ACETATE 667 MG CAP PO ×3 (08:24→17:46)
[2018-08-24] MEDS: BUMETANIDE 1 MG TAB PO (08:26)
[2018-08-24] MEDS: LOSARTAN 25 MG TAB PO (08:27)
[2018-08-24] MEDS: INSULIN GLARGINE [LANTus] (100 UNITS/ML) SYG SC (08:29)
[2018-08-24] MEDS: ASPIRIN (EC) 81 MG TAB PO (08:30)
[2018-08-24] MEDS: ATORVASTATIN 40 MG TAB PO (20:02)
[2018-08-25] MEDS: ACCU-CHEK XX (01:03)
[2018-08-25 06:49] LABS: ADD MAN DIFF? NO
[2018-08-25 06:57] LABS: WHITE BLOOD COUNT 4.4 10^3/ul (4.8-10.8)
[2018-08-25 06:57] LABS: ABNORMAL IP MESSAGE 1; BASOPHILS % 0.7 % (0.0-2.0); EOSINOPHILS # 0.1 10^3/ul (0.0-0.5); EOSINOPHILS % 2.3 % (0.0-7.0); HEMATOCRIT 22.9 % (42.0-52.0); HEMOGLOBIN 7.4 g/dl (14.0-18.0); LYMPHOCYTES # 0.6 10^3/ul (0.8-2.9); LYMPHOCYTES % 12.8 % (15.0-51.0); MEAN CORPUSCULAR HEMOGLOBIN 30.8 pg (29.0-33.0); MEAN CORPUSCULAR HGB CONC 32.3 g/dl (32.0-37.0); MEAN CORPUSCULAR VOLUME 95.4 fl (82.0-101.0); MEAN PLATELET VOLUME 13.2 fl (7.4-10.4); MONOCYTE # 0.5 10^3/ul (0.3-0.9); MONOCYTES % 12.4 % (0.0-11.0); NEUTROPHIL # 3.1 10^3/ul (1.6-7.5); NEUTROPHILS % 71.6 % (39.0-77.0); PLATELET COUNT 90 10^3/UL (140-415); POSITIVE DIFF @See below; RED CELL DISTRIBUTION WIDTH 13.1 % (11.5-14.5)
[2018-08-25 07:18] LABS: ANION GAP 10 (5-13); BLOOD UREA NITROGEN 89 mg/dl (7-20); CALCIUM 7.8 mg/dl (8.4-10.2); CARBON DIOXIDE 23 mmol/L (21-31); CHLORIDE 104 mmol/L (97-110); CREATININE 8.21 mg/dl (0.61-1.24); Estimated GFR 7 mL/min (>60); GLUCOSE 72 mg/dl (70-220); POTASSIUM 5.1 mmol/L (3.5-5.1); SODIUM 137 mmol/L (135-144)
[2018-08-25] MEDS: INSULIN ASPART [NOVOLOG] 3 ML PEN SC ×7 (07:55→20:28)
[2018-08-25] MEDS: CALCIUM ACETATE 667 MG CAP PO ×3 (07:55→17:55)
[2018-08-25] MEDS: INSULIN GLARGINE [LANTus] (100 UNITS/ML) SYG SC (08:00)
[2018-08-25] MEDS: LOSARTAN 25 MG TAB PO (09:00)
[2018-08-25] MEDS: AMLODIPINE 10 MG TAB PO (09:00)
[2018-08-25] MEDS: BUMETANIDE 1 MG TAB PO (09:23)
[2018-08-25] MEDS: ASPIRIN (EC) 81 MG TAB PO (09:24)
[2018-08-25] MEDS: NICOTINE (14 MG/24 HR) PATCH TRANSDERM (09:25)
[2018-08-25] MEDS: HEPARIN 1000 UNITS/ML 10 ML INJ CATHETER (16:45)
[2018-08-25] MEDS: EPOETIN ALFA-EPBX (ESRD) 4,000 UNIT/ML VIAL SC (17:00)
[2018-08-25] MEDS: ATORVASTATIN 40 MG TAB PO (19:50)
[2018-08-25] MEDS ORDERED: GELATIN SIZE 100 SPONGE (20:22)
[2018-08-25] MEDS ORDERED: HEPARIN 1000 UNITS/ML 10 ML INJ (20:22)
[2018-08-25] MEDS ORDERED: LIDOCAINE 2% (SDV) 5 ML INJ (21:18)
[2018-08-25] MEDS ORDERED: PROPOFOL 20 ML (21:18)
[2018-08-25] MEDS ORDERED: ROCURONIUM 50 MG INJ (21:18)
[2018-08-25] MEDS ORDERED: CEFAZOLIN 1 GM INJ (21:45)
[2018-08-25] MEDS: BUPIVACAINE 0.25% (MPF) 30 ML INJ (21:48)
[2018-08-25] MEDS: LIDOCAINE 1% (MPF) 30 ML INJ (21:49)
[2018-08-25] MEDS: HEPARIN 1000 UNITS/ML 10 ML INJ (21:50)
[2018-08-25] MEDS: THROMBIN (BOVINE) 5,000 UNIT VIAL TP (21:51)
[2018-08-25] MEDS ORDERED: EPHEDrine SULFATE 50 MG/5 ML SYG IV (22:30)
[2018-08-25] MEDS ORDERED: MEPERIDINE 25 MG INJ IV (22:30)
[2018-08-25] MEDS ORDERED: OXYCODONE/ACETAMINOPHEN (5/325) TAB PO ×2 (22:30)
[2018-08-25] MEDS ORDERED: ONDANSETRON 4 MG INJ IV (22:30)
[2018-08-25] MEDS ORDERED: FENTAnyl 50 MCG/ML VIAL IV ×3 (22:30)
[2018-08-25] MEDS ORDERED: hydrALAzine 20 MG INJ IV (22:30)
[2018-08-25] MEDS ORDERED: ALBUTEROL 0.083% (NEB) 2.5 MG/3 ML AMP HHN (22:30)
[2018-08-25] MEDS ORDERED: DIPHENHYDRAMINE 50 MG INJ IV (22:30)
[2018-08-25] MEDS ORDERED: HYDROmorphONE 1 MG/5 ML IV SYRINGE IV ×3 (22:30)
[2018-08-25] MEDS ORDERED: LABETALOL HCL 20MG INJ IV (22:30)
[2018-08-26] MEDS: ACETAMINOPHEN 325 MG TAB PO ×2 (00:13→06:53)
[2018-08-26] MEDS: ACCU-CHEK XX (01:10)
[2018-08-26 06:44] LABS: ADD MAN DIFF? NO
[2018-08-26 06:47] LABS: WHITE BLOOD COUNT 4.4 10^3/ul (4.8-10.8)
[2018-08-26 06:47] LABS: ABNORMAL IP MESSAGE 1; BASOPHILS % 0.5 % (0.0-2.0); EOSINOPHILS # 0.1 10^3/ul (0.0-0.5); EOSINOPHILS % 2.3 % (0.0-7.0); HEMOGLOBIN 7.7 g/dl (14.0-18.0); LYMPHOCYTES # 0.6 10^3/ul (0.8-2.9); LYMPHOCYTES % 13.8 % (15.0-51.0); MEAN CORPUSCULAR HEMOGLOBIN 30.6 pg (29.0-33.0); MEAN CORPUSCULAR HGB CONC 32.1 g/dl (32.0-37.0); MEAN CORPUSCULAR VOLUME 95.2 fl (82.0-101.0); MEAN PLATELET VOLUME 12.6 fl (7.4-10.4); MONOCYTE # 0.5 10^3/ul (0.3-0.9); MONOCYTES % 12.2 % (0.0-11.0); NEUTROPHIL # 3.1 10^3/ul (1.6-7.5); PLATELET COUNT 93 10^3/UL (140-415); POSITIVE DIFF @See below; RED BLOOD COUNT 2.52 10^6/ul (4.70-6.10); RED CELL DISTRIBUTION WIDTH 13.2 % (11.5-14.5)
[2018-08-26 07:32] LABS: ANION GAP 7 (5-13); BLOOD UREA NITROGEN 53 mg/dl (7-20); CALCIUM 8.1 mg/dl (8.4-10.2); CARBON DIOXIDE 29 mmol/L (21-31); CHLORIDE 102 mmol/L (97-110); CREATININE 5.79 mg/dl (0.61-1.24); Estimated GFR 10 mL/min (>60); GLUCOSE 120 mg/dl (70-220); POTASSIUM 4.7 mmol/L (3.5-5.1); SODIUM 138 mmol/L (135-144)
[2018-08-26] MEDS: LOSARTAN 25 MG TAB PO (07:41)
[2018-08-26] MEDS: AMLODIPINE 10 MG TAB PO (07:42)
[2018-08-26] MEDS: ASPIRIN (EC) 81 MG TAB PO (08:22)
[2018-08-26] MEDS: BUMETANIDE 1 MG TAB PO (08:23)
[2018-08-26] MEDS: CALCIUM ACETATE 667 MG CAP PO ×3 (08:23→17:25)
[2018-08-26] MEDS: NICOTINE (14 MG/24 HR) PATCH TRANSDERM (08:24)
[2018-08-26] MEDS: INSULIN GLARGINE [LANTus] (100 UNITS/ML) SYG SC (08:31)
[2018-08-26] MEDS: INSULIN ASPART [NOVOLOG] 3 ML PEN SC ×7 (08:31→20:53)
[2018-08-26] MEDS: HYDROCODONE/APAP (5/325) TAB PO ×2 (11:25→19:26)
[2018-08-26] MEDS: HEPARIN 1000 UNITS/ML 10 ML INJ CATHETER (16:34)
[2018-08-26] MEDS: ATORVASTATIN 40 MG TAB PO (20:52)
[2018-08-26] MEDS: ONDANSETRON 4 MG INJ IV (20:53)
[2018-08-27] MEDS: ACCU-CHEK XX (02:00)
[2018-08-27] MEDS: HYDROCODONE/APAP (5/325) TAB PO (03:43)
[2018-08-27] MEDS: INSULIN ASPART [NOVOLOG] 3 ML PEN SC ×4 (07:53→11:50)
[2018-08-27] MEDS: INSULIN GLARGINE [LANTus] (100 UNITS/ML) SYG SC (07:58)
[2018-08-27] MEDS: LOSARTAN 25 MG TAB PO (08:03)
[2018-08-27] MEDS: CALCIUM ACETATE 667 MG CAP PO ×2 (08:03→11:50)
[2018-08-27] MEDS: BUMETANIDE 1 MG TAB PO (08:03)
[2018-08-27] MEDS: AMLODIPINE 10 MG TAB PO (08:04)
[2018-08-27] MEDS: NICOTINE (14 MG/24 HR) PATCH TRANSDERM (08:05)
[2018-08-27] MEDS: ASPIRIN (EC) 81 MG TAB PO (08:05)
[2018-08-27] MEDS: ONDANSETRON 4 MG INJ IV (10:20)
== END 2018-08-27 12:25 | disposition home or self-care (01) | DRG 628 ==
LOC: E/R 15:59 → TEL 20:44
PROC: 031B09F Bypass Right Radial Artery to Lower Arm Vein with Autologous Venous Tissue, Open Approach (ICD-10-PCS; principal; 2018-08-25 20:30)
PROC: 30233N1 Transfusion of Nonautologous Red Blood Cells into Peripheral Vein, Percutaneous Approach (ICD-10-PCS; 2018-08-25 21:23)
PROC: 5A1D70Z Performance of Urinary Filtration, Intermittent, Less than 6 Hours Per Day (ICD-10-PCS; 2018-08-25 21:23)
DX: E87.70 Fluid overload, unspecified (principal); N18.6 End stage renal disease; I12.0 Hypertensive chronic kidney disease with stage 5 chronic kidney disease or end stage renal disease; E10.22 Type 1 diabetes mellitus with diabetic chronic kidney disease; E88.09 Other disorders of plasma-protein metabolism, not elsewhere classified; N18.9 Chronic kidney disease, unspecified; E78.5 Hyperlipidemia, unspecified; Z72.0 Tobacco use; Z99.2 Dependence on renal dialysis; I16.0 Hypertensive urgency; E87.5 Hyperkalemia; D63.1 Anemia in chronic kidney disease; R60.1 Generalized edema; Z91.15 Patient's noncompliance with renal dialysis
CPT/HCPCS: 36430; 71045; 71250; 80048; 80053; 82270; 82728; 82962; 83036; 83540; 83735; 84100; 85014; 85018; 85025; 85610; 85730; 86704; 86709; 86803; 86850; 86900; 86901; 86920; 87081; 87340; 90935; 93005; 93970; 93971; 96374; 99285-25